=== PATIENT | female | born 1990 | race African-American/Black ===

== ENCOUNTER 2017-10-14 21:11 | Emergency (ER) | payer SELFPAY ==
[~2017-10-14] VITALS: Ht 154.9 cm; Wt 119.1 kg
[2017-10-14 21:23] VITALS: BP 132/95; TEMP 98.5
[2017-10-14 22:32] LABS: COLLECTION METHOD CLEAN CATCH
[2017-10-14 22:38] LABS: MUCOUS Present /lpf; PH 5 (5-8); URINE APPEARANCE Cloudy; URINE BACTERIA Rare /hpf; URINE BILIRUBIN Negative (NEGATIVE); URINE BLOOD Negative (NEGATIVE); URINE COLOR Yellow; URINE GLUCOSE Negative (NEGATIVE); URINE KETONE Trace (NEGATIVE); URINE LEUKOCYTE ESTERASE Negative (NEGATIVE); URINE NITRATE Negative (NEGATIVE); URINE PROTEIN(semi-quant) Negative (NEGATIVE); URINE UROBILINOGEN Negative (NEGATIVE)
[2017-10-14 22:39] LABS: BASO % 0.4 % (0.0-2.0); EOS # 0.1 (0.0-0.7); EOS % 1.8 % (0-4.0); GRAN # 4.2 (1.4-6.5); HEMATOCRIT 46.2 % (37.0-47.0); HEMOGLOBIN 15.2 g/dl (12.5-16.0); LYMPH # 2.9 (1.2-3.4); LYMPH % 37.3 % (20.0-51.0); MEAN CELL VOLUME 81 fl (80.0-100.0); MEAN CORPUSCULAR HEMOGLOBIN 27 pg (27.0-31.0); MEAN CORPUSCULAR HGB CONC 33 g/dl (33.0-37.0); MEAN PLATELET VOLUME 9.3 fl (7.4-10.4); MONO # 0.5 (0.1-0.6); MONO % 6.2 % (1.7-9.3); PLATELET COUNT 340 K/mm3 (130-400); RED BLOOD COUNT 5.68 M/mm3 (4.10-5.30); REDCELL DISTRIBUTION WIDTH-CV 14.2 % (11.5-14.5)
[2017-10-14 22:51] LABS: ALBUMIN 4.5 gm/dL (3.5-5.0); BILIRUBIN,TOTAL 0.6 mg/dL (0.0-1.0); C-REACTIVE PROTEIN 1.7 mg/dL (0.0-0.9); CALCIUM 9.8 mg/dL (8.4-10.2); CREATININE, serum 0.9 mg/dL (0.52-1.25); POTASSIUM 3.9 mmol/L (3.4-5.0); TOTAL PROTEIN 10.3 gm/dL (6.4-8.2)
[2017-10-14 23:14] VITALS: PULSE 88
== END 2017-10-14 23:15 | disposition home or self-care (01) ==
LOC: COL.ER 21:11
PROVIDERS: Emergency Medicine
DX: M79.1 Myalgia (principal); R11.0 Nausea